=== PATIENT | male | born 1970 | race Hispanic/Latino ===

== ENCOUNTER 2019-07-17 18:54 | Emergency (ER) | payer BC ==
[2019-07-17 19:09] LABS: EOSINOPHILS % (AUTO) 6.7 % (0.0-8.0); HEMATOCRIT 47.8 % (42-54); LYMPHOCYTES % (AUTO) 20.2 % (21.0-51.0); MEAN CORPUSCULAR HEMOGLOBIN 29.7 pg (27.0-33.0); MEAN CORPUSCULAR VOLUME 82.5 fL (79-99); MONOCYTES % (AUTO) 2.8 % (3.0-13.0); NEUTROPHILS % (AUTO) 69.3 % (40.0-77.0); NUCLEATED RED BLOOD CELLS 0.1 % (0.0-0.19); PLATELET COUNT (AUTO) 170 K/uL (130-400); RED CELL DISTRIBUTION WIDTH 12.8 % (11.0-15.5); WHITE BLOOD COUNT (AUTO) 9.8 K/uL (4.8-10.8)
[2019-07-17 19:16] LABS: INR 0.9 (0.85-1.15); PARTIAL THROMBOPLASTIN TIME 24.7 SEC (26.3-35.5); PROTHROMBIN TIME 9.5 SEC (9.6-11.6)
[2019-07-17 19:19] LABS: CREATININE 0.8 mg/dL (0.5-1.5); POTASSIUM 4.2 mmol/L (3.5-5.1)
[2019-07-17 19:23] LABS: BILIRUBIN,TOTAL 0.7 mg/dL (0.2-1.0)
== END 2019-07-17 21:00 | disposition home or self-care (01) ==
LOC: EDH 18:54
DX: G51.0 Bell's palsy (principal); R79.1 Abnormal coagulation profile; Z79.899 Other long term (current) drug therapy; Z72.0 Tobacco use
CPT/HCPCS: 36415; 70450; 71045; 80053; 82550; 83721; 84484; 85025; 85610; 85730; 93005

== ENCOUNTER 2024-07-26 10:49 | Emergency (ER) | payer BC ==
[~2024-07-26] VITALS: Ht 167.6 cm; Wt 90.7 kg
[2024-07-26 11:36] LABS: CREATININE 1.1 mg/dL (0.5-1.3); POTASSIUM 4.3 mmol/L (3.5-5.1)
[2024-07-26 11:39] LABS: BASOPHILS # (AUTO) 0.08 K/uL (0.00-0.20); BASOPHILS % (AUTO) 0.9 % (0.0-5.0); EOSINOPHILS # (AUTO) 0.29 K/uL (0.00-0.70); EOSINOPHILS % (AUTO) 3.3 % (0.0-8.0); HEMATOCRIT 48.5 % (42-54); IMMATURE GRANULOCYTE ABSOLUTE 0.03 K/uL (0-1); LYMPHOCYTES # (AUTO) 2.2 K/uL (1.0-4.8); LYMPHOCYTES % (AUTO) 24.4 % (21.0-51.0); MEAN CORPUSCULAR HEMOGLOBIN 28.4 pg (27.0-33.0); MEAN CORPUSCULAR HGB CONC 34.6 g/dL (32.0-36.0); MEAN CORPUSCULAR VOLUME 81.9 fL (79-99); MONOCYTES # (AUTO) 0.5 K/uL (0.1-1.0); MONOCYTES % (AUTO) 5.8 % (3.0-13.0); NEUTROPHILS # (AUTO) 5.8 K/uL (1.8-7.7); NEUTROPHILS % (AUTO) 65.3 % (40.0-77.0); PLATELET COUNT (AUTO) 199 K/uL (130-400); RED BLOOD CELL COUNT(AUTO) 5.92 MIL/uL (4.50-6.20); RED CELL DISTRIBUTION WIDTH 12.2 % (11.0-15.5); WHITE BLOOD COUNT (AUTO) 8.9 K/uL (4.8-10.8)
[2024-07-26 11:40] LABS: ALBUMIN 3.9 g/dL (3.5-5.0); BILIRUBIN,TOTAL 1.4 mg/dL (0.2-1.0); TOTAL PROTEIN, SERUM 7.3 g/dL (6.0-8.3)
[2024-07-26] MEDS ORDERED: FAMO-136 PO (14:16)
[2024-07-26 14:21] VITALS: BP 124/76; PULSE 66; RESP 16; TEMP 98.3; O2SAT 98
[2024-07-26] MEDS: DICYCLOMINE HCL 10 MG/5 ML ML PO ONE (14:54)
[2024-07-26] MEDS: FAMOTIDINE 20MG VIAL IV STA (14:54)
[2024-07-26] MEDS: MAG/ALUM/SIMETH 30 ML UDCUP PO ONE (14:54)
[2024-07-26] MEDS: LIDOCAINE HCL 2% VISCOUS 15 ML UDCUP PO ONE (14:55)
[2024-07-26] MEDS: ketOROlac 15MG/ML VIAL (15MG/ML) IM STA (14:55)
== END 2024-07-26 15:36 | disposition home or self-care (01) ==
LOC: EDH 10:49
DX: R10.11 Right upper quadrant pain (principal); E11.9 Type 2 diabetes mellitus without complications
CPT/HCPCS: 99284; 96374; 76705; 80053; 83690; 85025; 36415; 96372; J3490; J1885